=== PATIENT | female | born 1955 | race Caucasian/White ===

== ENCOUNTER 2021-12-16 11:34 | Inpatient (IN) | payer OTHER, MEDICAID ==
[~2021-12-16] VITALS: Ht 170.2 cm; Wt 58.5 kg
[2021-12-16 11:41] VITALS: BP_SYST 163
[2021-12-16 12:39] LABS: BASOPHILS % (AUTO) 0.5 % (0.0-2.0); EOSINOPHILS % (AUTO) 0.1 % (0.0-4.0); HEMATOCRIT 38.6 % (36-48); HEMOGLOBIN 13.4 g/dL (12.0-16.0); LYMPHOCYTES # (AUTO) 0.9 K/uL (1.0-5.5); LYMPHOCYTES % (AUTO) 12.3 % (20.5-51.5); MEAN CORPUSCULAR HEMOGLOBIN 32 pg (27-31); MEAN CORPUSCULAR HGB CONC 35 % (32-36); MEAN CORPUSCULAR VOLUME 91 fL (79.0-98.0); MONOCYTES # (AUTO) 0.2 K/uL (0.0-1.0); MONOCYTES % (AUTO) 2.6 % (1.7-9.3); NEUTROPHILS # (AUTO) 5.8 K/uL (1.8-7.7); NEUTROPHILS % (AUTO) 84.5 % (40.0-70.0); PLATELET COUNT (AUTO) 196 K/uL (130-430); RED BLOOD CELL COUNT(AUTO) 4.26 MIL/uL (4.2-6.2); RED CELL DISTRIBUTION WIDTH 13.5 % (9.0-15.0); WHITE BLOOD COUNT (AUTO) 6.9 K/uL (4.8-10.8)
[2021-12-16 12:54] LABS: BILIRUBIN,URINE NEGATIVE (NEGATIVE); BLOOD, URINE TRACE (NEGATIVE); CLARITY/URINE CLEAR (CLEAR); COLOR,URINE YELLOW (YELLOW); GLUCOSE,URINE NEGATIVE (NEGATIVE); KETONES,URINE NEGATIVE (NEGATIVE); LEUKOCYTE ESTERASE ,URINE 1+ (NEGATIVE); NITRITE, URINE NEGATIVE (NEGATIVE); PROTEIN URINE NEGATIVE (NEGATIVE); UROBILINOGEN,URINE 0.2 (0.2-1.0)
[2021-12-16 12:58] LABS: ANION GAP 7 (5-15); CALCIUM 9.2 mg/dL (8.4-11.0); CHLORIDE 104 mmol/L (98-107); CREATININE 0.76 mg/dL (0.55-1.30); GLUCOSE 95 mg/dL (70-99); POTASSIUM 4.1 mmol/L (3.5-5.1); SODIUM SERUM 138 mmol/L (136-145); UREA NITROGEN, BLOOD 16 mg/dL (8-21)
[2021-12-16 13:07] LABS: BACTERIA,URINE RARE /HPF (None Seen)
[2021-12-16 13:10] LABS: GFR AFRICAN AMERICAN 98 mL/min (>90)
[2021-12-16 13:12] LABS: ALANINE AMINOTRANSFERASE 23 U/L (12-78); ALBUMIN 3.5 g/dL (3.4-4.8); ASPARTATE AMINOTRANSFERASE 22 U/L (10-37); TOTAL BILIRUBIN 0.9 mg/dL (0.0-1.0)
[2021-12-16] MEDS ORDERED: LISI10TA29 PO (15:32)
[2021-12-16 21:00] VITALS: BP_SYST 149
[2021-12-16] MEDS: LOSARTAN POTASSIUM 50 MG TABLET (COZAAR) PO SCH (21:30)
[2021-12-16 22:00] VITALS: BP_SYST 135
[2021-12-17] VITALS: BP_SYST 130
[2021-12-17 01:14] VITALS: BP_SYST 149
[2021-12-17 08:00] VITALS: BP_SYST 153
[2021-12-17] MEDS: LOSARTAN POTASSIUM 50 MG TABLET (COZAAR) PO SCH ×2 (08:36→21:54)
[2021-12-17 12:00] VITALS: BP_SYST 139
[2021-12-17] MEDS: KCL 20 mEq in D5/0.45NS 1000mL 1,000 ML IV SCH (13:23)
[2021-12-17 16:00] VITALS: BP_SYST 134
[2021-12-17] MEDS: CARBIDOPA/LEVODOPA 25/100 MG TABLET PO SCH ×2 (17:26→21:46)
[2021-12-17] MEDS: ACETAMINOPHEN 325 MG TABLET PO PRN (17:38)
[2021-12-17 20:00] VITALS: BP_SYST 134
[2021-12-17] MEDS: ENOXAPARIN SODIUM 40 MG/0.4 ML SYRINGE SUBCUT SCH (21:46)
[2021-12-18] VITALS: BP_SYST 137
[2021-12-18] MEDS: KCL 20 mEq in D5/0.45NS 1000mL 1,000 ML IV SCH ×2 (02:50→14:36)
[2021-12-18 04:00] VITALS: BP_SYST 147
[2021-12-18 08:00] VITALS: BP_SYST 140
[2021-12-18] MEDS: LOSARTAN POTASSIUM 50 MG TABLET (COZAAR) PO SCH ×2 (08:18→20:21)
[2021-12-18] MEDS: CARBIDOPA/LEVODOPA 25/100 MG TABLET PO SCH ×4 (08:18→20:20)
[2021-12-18 12:00] VITALS: BP_SYST 135
[2021-12-18 16:00] VITALS: BP_SYST 138
[2021-12-18] MEDS: ACETAMINOPHEN 325 MG TABLET PO PRN (17:04)
[2021-12-18 20:00] VITALS: BP_SYST 117
[2021-12-18] MEDS: ENOXAPARIN SODIUM 40 MG/0.4 ML SYRINGE SUBCUT SCH (20:21)
[2021-12-19] VITALS: BP_SYST 110
[2021-12-19] MEDS: KCL 20 mEq in D5/0.45NS 1000mL 1,000 ML IV SCH ×2 (04:33→15:36)
[2021-12-19 08:00] VITALS: BP_SYST 129
[2021-12-19] MEDS: LOSARTAN POTASSIUM 50 MG TABLET (COZAAR) PO SCH ×2 (08:02→21:30)
[2021-12-19] MEDS: CARBIDOPA/LEVODOPA 25/100 MG TABLET PO SCH ×4 (08:02→21:30)
[2021-12-19 12:00] VITALS: BP_SYST 120
[2021-12-19 16:00] VITALS: BP_SYST 128
[2021-12-19] MEDS: ACETAMINOPHEN 325 MG TABLET PO PRN (17:55)
[2021-12-19 20:00] VITALS: BP_SYST 121
[2021-12-19] MEDS: ENOXAPARIN SODIUM 40 MG/0.4 ML SYRINGE SUBCUT SCH (21:30)
[2021-12-20] VITALS: BP_SYST 110
[2021-12-20 04:00] VITALS: BP_SYST 118
[2021-12-20] MEDS: KCL 20 mEq in D5/0.45NS 1000mL 1,000 ML IV SCH ×2 (06:21→18:31)
[2021-12-20] MEDS: LOSARTAN POTASSIUM 50 MG TABLET (COZAAR) PO SCH ×2 (10:04→21:28)
[2021-12-20] MEDS: CARBIDOPA/LEVODOPA 25/100 MG TABLET PO SCH ×4 (10:04→21:27)
[2021-12-20 12:00] VITALS: BP_SYST 142
[2021-12-20] MEDS: ACETAMINOPHEN 325 MG TABLET PO PRN ×2 (13:25→21:28)
[2021-12-20 16:00] VITALS: BP_SYST 142
[2021-12-20 20:00] VITALS: BP_SYST 113
[2021-12-20] MEDS: ENOXAPARIN SODIUM 40 MG/0.4 ML SYRINGE SUBCUT SCH (21:28)
[2021-12-21] VITALS: BP_SYST 107
[2021-12-21] MEDS: ACETAMINOPHEN 325 MG TABLET PO PRN ×2 (05:06→20:59)
[2021-12-21] MEDS: CARBIDOPA/LEVODOPA 25/100 MG TABLET PO SCH ×4 (09:31→20:59)
[2021-12-21] MEDS: LOSARTAN POTASSIUM 50 MG TABLET (COZAAR) PO SCH ×2 (09:31→21:00)
[2021-12-21] MEDS: KCL 20 mEq in D5/0.45NS 1000mL 1,000 ML IV SCH (09:31)
[2021-12-21 12:00] VITALS: BP_SYST 138
[2021-12-21 16:00] VITALS: BP_SYST 118
[2021-12-21 20:31] VITALS: BP_SYST 123
[2021-12-21] MEDS: ENOXAPARIN SODIUM 40 MG/0.4 ML SYRINGE SUBCUT SCH (21:00)
[2021-12-22 00:56] VITALS: BP_SYST 106
[2021-12-22] MEDS: KCL 20 mEq in D5/0.45NS 1000mL 1,000 ML IV SCH ×2 (04:37→18:35)
[2021-12-22] MEDS: CARBIDOPA/LEVODOPA 25/100 MG TABLET PO SCH ×7 (09:03→20:57)
[2021-12-22] MEDS: LOSARTAN POTASSIUM 50 MG TABLET (COZAAR) PO SCH ×2 (09:03→21:00)
[2021-12-22 12:00] VITALS: BP_SYST 140
[2021-12-22 16:34] VITALS: BP_SYST 145
[2021-12-22 20:00] VITALS: BP_SYST 99
[2021-12-22] MEDS: ENOXAPARIN SODIUM 40 MG/0.4 ML SYRINGE SUBCUT SCH (21:02)
[2021-12-23 01:16] VITALS: BP_SYST 110
[2021-12-23] MEDS: KCL 20 mEq in D5/0.45NS 1000mL 1,000 ML IV SCH (01:40)
[2021-12-23 07:00] VITALS: BP_SYST 139
[2021-12-23 08:00] VITALS: BP_SYST 139
[2021-12-23] MEDS: CARBIDOPA/LEVODOPA 25/100 MG TABLET PO SCH ×3 (09:16→17:23)
[2021-12-23] MEDS: LOSARTAN POTASSIUM 50 MG TABLET (COZAAR) PO SCH (09:16)
[2021-12-23] MEDS: ACETAMINOPHEN 325 MG TABLET PO PRN (09:43)
[2021-12-23 12:00] VITALS: BP_SYST 139
[2021-12-23 15:44] VITALS: BP_SYST 139
[2021-12-23 16:44] VITALS: BP_SYST 122
== END 2021-12-23 17:55 | DRG 57 ==
LOC: SED 11:34 → SMU 16:24
PROVIDERS: ADMIT Family Medicine; ATTEND Family Medicine
DX: G20 Parkinson's disease (principal); I10 Essential (primary) hypertension; R29.6 Repeated falls; Z20.822 Contact with and (suspected) exposure to COVID-19; R13.10 Dysphagia, unspecified; Z90.710 Acquired absence of both cervix and uterus
CPT/HCPCS: 36415; 71045; 80053; 81000; 83605; 84484; 85025; 87040; 87086; 93005; 97116-GP; 97530-GP; 99285; J1650

== ENCOUNTER 2022-03-08 21:34 | Emergency (ER) | payer OTHER, MEDICAID ==
[~2022-03-08] VITALS: Ht 172.7 cm; Wt 49.0 kg
[~2022-03-08 21:34] MED LIST: CARB1TAB33 PO; LISI10TA29 PO
[2022-03-08 21:37] VITALS: BP_SYST 120
--- NOTE | 2022-03-08 21:41 | NUR ---
Patient to ER bed 02 to gown for evaluation. Side rails up. Report given to CHATA Jefferson/Yong RN
--- NOTE | 2022-03-08 21:47 | NUR ---
PT BIBA AWAKE AND ALERT, AO X4. NO SOB OR DISTRESS. PT CAME FROM [facility]. EMT STATED PT HAD A FALL AT HER FACILITY. PT DENIES HITTING HER HEAD, OR KO. PT C/O OF PAIN TO L HIP AND L LEG PAIN 11/27. PERRLA. PT HAS HX OF GEOLID.
--- NOTE | 2022-03-08 21:58 | NUR ---
MD DR PACE AT BEDSIDE
--- NOTE | 2022-03-08 23:10 | NUR ---
REPORT GIVEN TO ERIC BRIZUELA, PT IN STABLE CONDITION
--- NOTE | 2022-03-08 23:40 | NUR ---
Specimens for COVID and MRSA antigens collected and sent to lab.
[2022-03-09 00:33] LABS: BASOPHILS % (AUTO) 0.6 % (0.0-2.0); EOSINOPHILS # (AUTO) 0.2 K/uL (0.0-0.4); EOSINOPHILS % (AUTO) 3.6 % (0.0-4.0); HEMATOCRIT 36.1 % (36-48); LYMPHOCYTES # (AUTO) 1.4 K/uL (1.0-5.5); LYMPHOCYTES % (AUTO) 22.7 % (20.5-51.5); MEAN CORPUSCULAR HEMOGLOBIN 33 pg (27-31); MEAN CORPUSCULAR HGB CONC 36 % (32-36); MEAN CORPUSCULAR VOLUME 91 fL (79.0-98.0); MONOCYTES # (AUTO) 0.4 K/uL (0.0-1.0); MONOCYTES % (AUTO) 6.8 % (1.7-9.3); NEUTROPHILS % (AUTO) 66.3 % (40.0-70.0); PLATELET COUNT (AUTO) 283 K/uL (130-430); RED BLOOD CELL COUNT(AUTO) 3.96 MIL/uL (4.2-6.2); RED CELL DISTRIBUTION WIDTH 14.6 % (9.0-15.0)
--- NOTE | 2022-03-09 00:36 | NUR ---
Dr. Basurto informed of EKG reading. Order for repeat EKG.
[2022-03-09 00:49] LABS: ANION GAP 4 (5-15); CHLORIDE 103 mmol/L (98-107); CREATININE 0.75 mg/dL (0.55-1.30); GLUCOSE 90 mg/dL (70-99); POTASSIUM 3.8 mmol/L (3.5-5.1); UREA NITROGEN, BLOOD 9 mg/dL (8-21)
--- NOTE | 2022-03-09 00:52 | NUR ---
Repeat EKG performed and given to Dr. Basurto. New orders received.
[2022-03-09 00:53] LABS: ALANINE AMINOTRANSFERASE 51 U/L (12-78); ALBUMIN 3.4 g/dL (3.4-4.8); ASPARTATE AMINOTRANSFERASE 25 U/L (10-37); TOTAL BILIRUBIN 0.5 mg/dL (0.0-1.0)
[2022-03-09 00:54] LABS: GFR AFRICAN AMERICAN 100 mL/min (>90)
[2022-03-09] MEDS ORDERED: MORPHINE 2 MG/ML INJ. SYRINGE IVP ONE (01:00)
[2022-03-09] MEDS ORDERED: MORPHINE 2 MG/ML INJ. SYRINGE ONE (01:03)
[2022-03-09 01:18] LABS: PROTHROMBIN TIME 10.5 SECS (9.5-12.5)
--- NOTE | 2022-03-09 01:30 | NUR ---
Pt resting quietly, even and non-labored respirations, VSS, NAD.
[2022-03-09] MEDS ORDERED: NAPR-688 PO (01:44)
--- NOTE | 2022-03-09 02:00 | NUR ---
Pt incontinent of urine. Pt cleaned, fresh gown, and linens applied. No needs verbalized.
--- NOTE | 2022-03-09 04:00 | NUR ---
Pt resting quietly, even and non-labored respirations, VSS, NAD.
--- NOTE | 2022-03-09 05:15 | NUR ---
Pt incontinent of urine. Pt cleaned, fresh gown and linens applied. Pt denies c/o pain or discomfort and no needs verbalized at this time.
--- NOTE | 2022-03-09 07:10 | NUR ---
Pt report given to CHATA Crow. Pt resting quietly, NAD.
--- NOTE | 2022-03-09 07:10 | NUR ---
Received report at this time.
--- NOTE | 2022-03-09 07:14 | NUR ---
Attempted to reach [facility] x2. No answer. [facility]
--- NOTE | 2022-03-09 07:20 | NUR ---
RECEIVED PT FROM CHATA CABRERA. PT IS LETHARGIC, PERRL, ABLE TO FOLLOW SIMPLE COMMANDS. RESP E/U. ON R/ NORMAL S1S2. NO S/S N/V. IV CATH 20 TO LAC, WNL. PT DENIES PAIN. SIDERAILS UP X2. PT ON MONITOR. Addendum: 03/09/22 at 0857 by [email or web address] DISREGARD, CHARTING ON WRONG PT.
--- NOTE | 2022-03-09 07:22 | NUR ---
Pt resting in bed with eyes closed. Resp even and unlabored. NO acute distress noted. AAOx2. Pt presently on monitor. Extra blankets provided.
--- NOTE | 2022-03-09 07:45 | NUR ---
Report given to GARRET Galindo keycase assembler of [facility]. Nurse made aware that patient is discharged and will be returning to facility with prescription and copies of lab/radiology report.
--- NOTE | 2022-03-09 07:45 | NUR ---
Pt technically discharged at this time. Report givben to Josie correctional counselor/case manager. Awaiting EMS arrival.
--- NOTE | 2022-03-09 07:52 | NUR ---
INITIATED NS 1000ML AT 999ML/HOUR TO BE COMPLETED AT 0820. REGULAR INSULIN 14 UNITS SQ GIVEN TO RIGHT UPPER ARM. BS 455.
--- NOTE | 2022-03-09 07:57 | NUR ---
[facility] ROOM 210B.
--- NOTE | 2022-03-09 07:58 | NUR ---
NOtified by unit educator that patient has a possible transport eta of 1200.
[2022-03-09 13:10] VITALS: BP_SYST 160
--- NOTE | 2022-03-09 13:10 | NUR ---
Patient's nurse (mattress spring encaser Josie of [facility]) given verbal discharge instructions and report and verbalizes understanding. ER MD discussed with patient the results and treatment provided. Patient in stable condition. ID arm band removed. IV catheter removed intact and dressing applied, no active bleeding.Rx of naproxyn given and discharge instructions given to EMS Medic 1 unit 323. Patient educated on pain management and to follow up with PMD. Pain Scale 0/10. Opportunity for questions provided and answered. Pt left building at this time.
== END 2022-03-09 13:10 | disposition home or self-care (01) ==
LOC: SED 21:34
DX: S76.012A Strain of muscle, fascia and tendon of left hip, initial encounter (principal); I10 Essential (primary) hypertension; Z79.899 Other long term (current) drug therapy; Z20.822 Contact with and (suspected) exposure to COVID-19; R51.9 Headache, unspecified; W06.XXXA Fall from bed, initial encounter; Y93.89 Activity, other specified; Y92.89 Other specified places as the place of occurrence of the external cause; Y99.8 Other external cause status
CPT/HCPCS: 99285; 70450; 87426; 80053; 85025; 85610; 85730; 87081; 84484; 36415; 73502; 72125; 73700; 96374; 76376; J2270; 93005